=== PATIENT | female | born 1985 | race Caucasian/White ===

== ENCOUNTER 2017-03-10 18:37 | Inpatient (IN) | payer BC, SELFPAY ==
[~2017-03-10] VITALS: Ht 162.6 cm; Wt 95.4 kg
[~2017-03-10 18:37] MED LIST: Bactrim Ds Tab1 EACH PO; CRUTCH3 USE; HYDACE5 PO; IBUP400 PO; IBUP800 PO; PROM25 PO; Verotin-Gr Cap1 EACH PO
[2017-03-10 20:16] LABS: BASOPHILS ABSOLUTE AUTO 0.05 K/mm3 (0.00-0.23); BASOPHILS PERCENT AUTO 0 % (0-2); EOSINOPHILS ABSOLUTE AUTO 0.34 K/mm3 (0.00-0.68); EOSINOPHILS PERCENT AUTO 2 % (0-6); Hematocrit 33.7 % (33.0-51.0); Hemoglobin 11.9 g/dL (11.5-16.0); IMMATURE GRAN ABSOLUTE AUTO 0.07 K/mm3 (0.00-0.10); IMMATURE GRAN PERCENT AUTO 1 % (0-1); LYMPHOCYTES ABSOLUTE AUTO 1.89 K/mm3 (0.84-5.20); LYMPHOCYTES PERCENT AUTO 13 % (21-46); MONOCYTES ABSOLUTE AUTO 1.07 K/mm3 (0.16-1.47); MONOCYTES PERCENT AUTO 7 % (4-13); Mean Corpuscular HGB 31.2 pg (26.0-34.0); Mean Corpuscular HGB Conc 35.3 g/dL (31.5-36.5); Mean Corpuscular Volume 89 fL (80-100); Mean Platelet Volume 8.3 fL (9.1-12.4); NEUTROPHILS ABSOLUTE AUTO 11.52 K/mm3 (1.96-9.15); NEUTROPHILS PERCENT AUTO 77 % (41-73); Platelet Count 325 K/mm3 (150-400); RDW Coefficient Variation 12.4 % (11.7-14.2); RDW Standard Deviation 39.9 fL (35.1-46.3); Red Blood Cell Count 3.81 M/mm3 (3.80-5.20); White Blood Cell Count 14.94 K/mm3 (4.00-11.30)
[2017-03-10] MEDS ORDERED: ALBU4 PO (20:40)
[2017-03-11 06:45] LABS: BASOPHILS ABSOLUTE AUTO 0.03 K/mm3 (0.00-0.23); BASOPHILS PERCENT AUTO 0 % (0-2); EOSINOPHILS ABSOLUTE AUTO 0.03 K/mm3 (0.00-0.68); EOSINOPHILS PERCENT AUTO 0 % (0-6); Hematocrit 28.1 % (33.0-51.0); Hemoglobin 9.9 g/dL (11.5-16.0); IMMATURE GRAN ABSOLUTE AUTO 0.09 K/mm3 (0.00-0.10); IMMATURE GRAN PERCENT AUTO 1 % (0-1); LYMPHOCYTES ABSOLUTE AUTO 1.28 K/mm3 (0.84-5.20); LYMPHOCYTES PERCENT AUTO 9 % (21-46); MONOCYTES ABSOLUTE AUTO 0.85 K/mm3 (0.16-1.47); MONOCYTES PERCENT AUTO 6 % (4-13); Mean Corpuscular HGB 31.6 pg (26.0-34.0); Mean Corpuscular HGB Conc 35.2 g/dL (31.5-36.5); Mean Corpuscular Volume 90 fL (80-100); Mean Platelet Volume 8.1 fL (9.1-12.4); NEUTROPHILS ABSOLUTE AUTO 12.68 K/mm3 (1.96-9.15); NEUTROPHILS PERCENT AUTO 85 % (41-73); Platelet Count 291 K/mm3 (150-400); RDW Coefficient Variation 12.3 % (11.7-14.2); RDW Standard Deviation 39.8 fL (35.1-46.3); Red Blood Cell Count 3.13 M/mm3 (3.80-5.20); White Blood Cell Count 14.96 K/mm3 (4.00-11.30)
== END 2017-03-11 18:55 | disposition home or self-care (01) | DRG 767 ==
LOC: BC 18:37
PROVIDERS: Obstetrics & Gynecology
PROC: 10E0XZZ Delivery of Products of Conception, External Approach (ICD-10-PCS; principal; 2017-03-11)
PROC: 10D17Z9 Manual Extraction of Products of Conception, Retained, Via Natural or Artificial Opening (ICD-10-PCS; 2017-03-11)
PROC: 3E0P7VZ Introduction of Hormone into Female Reproductive, Via Natural or Artificial Opening (ICD-10-PCS; 2017-03-11)
DX: O42.912 Preterm premature rupture of membranes, unspecified as to length of time between rupture and onset of labor, second trimester (principal); O41.1220 Chorioamnionitis, second trimester, not applicable or unspecified; O72.0 Third-stage hemorrhage; O36.5920 Maternal care for other known or suspected poor fetal growth, second trimester, not applicable or unspecified; Z37.1 Single stillbirth; Z3A.18 18 weeks gestation of pregnancy
CPT/HCPCS: 36415; 76815; 80053; 84702; 85025; 86850; 86900; 86901; 99283; J0690; J1885; J2210; J2405; J2590; J3010; J7120

== ENCOUNTER 2017-05-28 20:00 | Emergency (ER) | payer BC, SELFPAY ==
[~2017-05-28] VITALS: Ht 165.1 cm; Wt 90.7 kg
[~2017-05-28 20:00] MED LIST changes: +ALBU4 PO
[2017-05-28 20:19] LABS: BASOPHILS ABSOLUTE AUTO 0.06 K/mm3 (0.00-0.23); BASOPHILS PERCENT AUTO 1 % (0-2); EOSINOPHILS ABSOLUTE AUTO 0.49 K/mm3 (0.00-0.68); EOSINOPHILS PERCENT AUTO 5 % (0-6); Hematocrit 39.6 % (33.0-51.0); Hemoglobin 13.2 g/dL (11.5-16.0); IMMATURE GRAN ABSOLUTE AUTO 0.02 K/mm3 (0.00-0.10); IMMATURE GRAN PERCENT AUTO 0 % (0-1); LYMPHOCYTES ABSOLUTE AUTO 3.22 K/mm3 (0.84-5.20); LYMPHOCYTES PERCENT AUTO 31 % (21-46); MONOCYTES ABSOLUTE AUTO 0.85 K/mm3 (0.16-1.47); MONOCYTES PERCENT AUTO 8 % (4-13); Mean Corpuscular HGB Conc 33.3 g/dL (31.5-36.5); Mean Corpuscular Volume 87 fL (80-100); Mean Platelet Volume 8.6 fL (9.1-12.4); NEUTROPHILS ABSOLUTE AUTO 5.62 K/mm3 (1.96-9.15); NEUTROPHILS PERCENT AUTO 55 % (41-73); Platelet Count 355 K/mm3 (150-400); RDW Coefficient Variation 12.2 % (11.7-14.2); Red Blood Cell Count 4.55 M/mm3 (3.80-5.20); White Blood Cell Count 10.26 K/mm3 (4.00-11.30)
[2017-05-28 20:40] LABS: Alanine Aminotransfer (ALT/SGP 21 U/L (12-78); Albumin, Blood 3.8 g/dL (3.4-5.0); Albumin/Globulin Ratio 1.2 (0.8-1.8); Alk Phos 65 U/L (50-136); Anion Gap 3 mmol/L (6-16); Aspartate Aminotrans (AST/SGOT 13 U/L (12-37); Bilirubin, Total 0.1 mg/dL (0.1-1.0); Blood Urea Nitrogen 12 mg/dL (8-24); Bun/Creatinine Ratio 14.4 (12.0-20.0); CO2, Blood 26 mmol/L (21-32); Calcium, Blood 9.1 mg/dL (8.5-10.1); Chloride, Blood 109 mmol/L (98-108); Creatinine, Blood 0.83 mg/dL (0.40-1.00); Globulin, Blood 3.3 g/dL (2.2-4.0); Glomerular Filtration Rate >60 (60-); Glucose, Blood 94 mg/dL (70-99); Potassium, Blood 3.6 mmol/L (3.5-5.5); Sodium, Blood 138 mmol/L (136-145); Total Protein, Blood 7.1 g/dL (6.4-8.2)
== END 2017-05-29 00:25 | disposition home or self-care (01) ==
LOC: ER 20:00
PROVIDERS: Emergency Medicine
DX: R07.9 Chest pain, unspecified (principal); R06.02 Shortness of breath; Z79.899 Other long term (current) drug therapy
CPT/HCPCS: 36415; 80053; 81000; 81025; 84443; 84703; 85025; 93005; 93010

== ENCOUNTER 2017-08-06 10:52 | Day surgery (SDC) | payer BC, SELFPAY ==
[~2017-08-06] VITALS: Ht 162.6 cm; Wt 98.0 kg
== END 2017-08-06 14:07 | disposition home or self-care (01) ==
LOC: ORSCSDS 10:52
PROVIDERS: Obstetrics & Gynecology
PROC: 0UDB8ZX Extraction of Endometrium, Via Natural or Artificial Opening Endoscopic, Diagnostic (ICD-10-PCS; principal; 2017-08-06 12:15)
DX: N92.5 Other specified irregular menstruation (principal); N85.00 Endometrial hyperplasia, unspecified; N84.0 Polyp of corpus uteri; R93.8 Abnormal findings on diagnostic imaging of other specified body structures; N71.1 Chronic inflammatory disease of uterus; E66.01 Morbid (severe) obesity due to excess calories; Z68.36 Body mass index [BMI] 36.0-36.9, adult
CPT/HCPCS: 88305; J0690; J1100; J1885; J2250; J2405; J3010; J7120

== ENCOUNTER 2018-07-24 03:35 | Inpatient (IN) | payer BC ==
[~2018-07-24] VITALS: Ht 165.1 cm; Wt 114.0 kg
[2018-07-24 05:13] LABS: BASOPHILS ABSOLUTE AUTO 0.05 K/mm3 (0.00-0.23); BASOPHILS PERCENT AUTO 0 % (0-2); EOSINOPHILS ABSOLUTE AUTO 0.38 K/mm3 (0.00-0.68); EOSINOPHILS PERCENT AUTO 3 % (0-6); Hematocrit 35.9 % (33.0-51.0); IMMATURE GRAN ABSOLUTE AUTO 0.06 K/mm3 (0.00-0.10); IMMATURE GRAN PERCENT AUTO 1 % (0-1); LYMPHOCYTES ABSOLUTE AUTO 2.01 K/mm3 (0.84-5.20); LYMPHOCYTES PERCENT AUTO 15 % (21-46); MONOCYTES ABSOLUTE AUTO 1.02 K/mm3 (0.16-1.47); MONOCYTES PERCENT AUTO 8 % (4-13); Mean Corpuscular HGB 30.7 pg (26.0-34.0); Mean Corpuscular HGB Conc 33.4 g/dL (31.5-36.5); Mean Corpuscular Volume 92 fL (80-100); Mean Platelet Volume 8.8 fL (9.1-12.4); NEUTROPHILS ABSOLUTE AUTO 9.72 K/mm3 (1.96-9.15); NEUTROPHILS PERCENT AUTO 73 % (41-73); Platelet Count 326 K/mm3 (150-400); RDW Coefficient Variation 12.9 % (11.7-14.2); RDW Standard Deviation 42.8 fL (35.1-46.3); Red Blood Cell Count 3.91 M/mm3 (3.80-5.20); White Blood Cell Count 13.24 K/mm3 (4.00-11.30)
--- NOTE | 2018-07-24 20:19 | NUR ---
EPIDURAL STARTED @ 814 TODAY SCANED INT emar NOW
--- NOTE | 2018-07-24 20:26 | NUR ---
2020 epidural cont. rate adjusted to [address] Sauceda instructions
[2018-07-25 05:55] LABS: BASOPHILS ABSOLUTE AUTO 0.06 K/mm3 (0.00-0.23); BASOPHILS PERCENT AUTO 0 % (0-2); EOSINOPHILS ABSOLUTE AUTO 0.04 K/mm3 (0.00-0.68); EOSINOPHILS PERCENT AUTO 0 % (0-6); Hematocrit 31.5 % (33.0-51.0); Hemoglobin 10.7 g/dL (11.5-16.0); IMMATURE GRAN ABSOLUTE AUTO 0.19 K/mm3 (0.00-0.10); IMMATURE GRAN PERCENT AUTO 1 % (0-1); LYMPHOCYTES ABSOLUTE AUTO 2.11 K/mm3 (0.84-5.20); LYMPHOCYTES PERCENT AUTO 8 % (21-46); MONOCYTES ABSOLUTE AUTO 1.96 K/mm3 (0.16-1.47); MONOCYTES PERCENT AUTO 7 % (4-13); Mean Corpuscular HGB 31.7 pg (26.0-34.0); Mean Corpuscular Volume 93 fL (80-100); Mean Platelet Volume 8.5 fL (9.1-12.4); NEUTROPHILS ABSOLUTE AUTO 22.88 K/mm3 (1.96-9.15); NEUTROPHILS PERCENT AUTO 84 % (41-73); Platelet Count 288 K/mm3 (150-400); RDW Coefficient Variation 12.9 % (11.7-14.2); RDW Standard Deviation 44.1 fL (35.1-46.3); Red Blood Cell Count 3.38 M/mm3 (3.80-5.20); White Blood Cell Count 27.24 K/mm3 (4.00-11.30)
[2018-07-26 05:33] LABS: BASOPHILS ABSOLUTE AUTO 0.05 K/mm3 (0.00-0.23); BASOPHILS PERCENT AUTO 0 % (0-2); EOSINOPHILS ABSOLUTE AUTO 0.34 K/mm3 (0.00-0.68); EOSINOPHILS PERCENT AUTO 3 % (0-6); Hematocrit 34.2 % (33.0-51.0); Hemoglobin 11.2 g/dL (11.5-16.0); IMMATURE GRAN ABSOLUTE AUTO 0.04 K/mm3 (0.00-0.10); IMMATURE GRAN PERCENT AUTO 0 % (0-1); LYMPHOCYTES PERCENT AUTO 19 % (21-46); MONOCYTES ABSOLUTE AUTO 0.97 K/mm3 (0.16-1.47); MONOCYTES PERCENT AUTO 8 % (4-13); Mean Corpuscular HGB Conc 32.7 g/dL (31.5-36.5); Mean Corpuscular Volume 95 fL (80-100); Mean Platelet Volume 8.8 fL (9.1-12.4); NEUTROPHILS ABSOLUTE AUTO 8.28 K/mm3 (1.96-9.15); NEUTROPHILS PERCENT AUTO 70 % (41-73); Platelet Count 302 K/mm3 (150-400); RDW Standard Deviation 44.8 fL (35.1-46.3); Red Blood Cell Count 3.61 M/mm3 (3.80-5.20); White Blood Cell Count 11.88 K/mm3 (4.00-11.30)
--- NOTE | 2018-07-26 10:01 | NUR ---
ASSIST BABY SLEEPING. ORDERED SUPP EACH FEEDING FOR ELEVATED JAUNDICE. DISCUSSED CORRECT LATCH DEMONSTRATED FOOTBALL HHOLD AND BREAST ROLL. DEMONSTRATED NEW BEGINNINGS AND BOOK.
[2018-07-26] MEDS ORDERED: IBUP800 (13:08)
--- NOTE | 2018-07-26 14:36 | NUR ---
PATIENT SLEEPING DENIES NEEDING PAIN MEDICATION
== END 2018-07-26 17:00 | disposition home or self-care (01) | DRG 807 ==
LOC: OBS 03:35 → BC 03:41 → OBS 03:55 → BC 03:57
PROVIDERS: Advanced Practice Midwife; ADMIT Nurse Practitioner Obstetrics & Gynecology
PROC: 10E0XZZ Delivery of Products of Conception, External Approach (ICD-10-PCS; principal; 2018-07-24)
PROC: 10H07YZ Insertion of Other Device into Products of Conception, Via Natural or Artificial Opening (ICD-10-PCS; 2018-07-24)
PROC: 3E0R3BZ Introduction of Anesthetic Agent into Spinal Canal, Percutaneous Approach (ICD-10-PCS; 2018-07-24)
DX: O99.824 Streptococcus B carrier state complicating childbirth (principal); Z37.0 Single live birth; Z3A.40 40 weeks gestation of pregnancy
CPT/HCPCS: 36415; 51702; 85025; 90471; J0290; J0690; J1885; J2001; J2210; J2405; J2590; J3010; J7120

== ENCOUNTER → 2019-07-04 | Outpatient (CLI) | payer BC ==
[~2019-07-04] MED LIST changes: +IBUP800
== END | disposition home or self-care (01) ==
LOC: LAB SHORT 10:15 → LAB 10:15
DX: Z09 Encounter for follow-up examination after completed treatment for conditions other than malignant neoplasm (principal); Z86.14 Personal history of Methicillin resistant Staphylococcus aureus infection
CPT/HCPCS: 87081

== ENCOUNTER → 2019-08-08 | Outpatient (CLI) | payer BC | END | disposition home or self-care (01) | LOC: LAB 09:33 → LAB SHORT 09:33 | DX: Z09 Encounter for follow-up examination after completed treatment for conditions other than malignant neoplasm (principal); Z86.14 Personal history of Methicillin resistant Staphylococcus aureus infection | CPT/HCPCS: 87081 ==

== ENCOUNTER 2021-08-10 21:03 | Inpatient (IN) | payer BC ==
[~2021-08-10] VITALS: Ht 162.6 cm; Wt 272.0 kg
[~2021-08-10 21:03] MED LIST changes: +Percocet 5-3251 EACH PO
[2021-08-10] MEDS ORDERED: ALBU90OI INH (21:27)
[2021-08-10 22:02] LABS: BASOPHILS ABSOLUTE AUTO 0.03 K/mm3 (0.00-0.23); BASOPHILS PERCENT AUTO 0 % (0-2); EOSINOPHILS ABSOLUTE AUTO 0.39 K/mm3 (0.00-0.68); EOSINOPHILS PERCENT AUTO 3 % (0-6); Hematocrit 36.1 % (33.0-51.0); Hemoglobin 12.2 g/dL (11.5-16.0); IMMATURE GRAN ABSOLUTE AUTO 0.05 K/mm3 (0.00-0.10); IMMATURE GRAN PERCENT AUTO 0 % (0-1); LYMPHOCYTES ABSOLUTE AUTO 2.34 K/mm3 (0.84-5.20); LYMPHOCYTES PERCENT AUTO 20 % (21-46); MONOCYTES ABSOLUTE AUTO 1.25 K/mm3 (0.16-1.47); MONOCYTES PERCENT AUTO 11 % (4-13); Mean Corpuscular HGB 29.9 pg (26.0-34.0); Mean Corpuscular HGB Conc 33.8 g/dL (31.5-36.5); Mean Corpuscular Volume 89 fL (80-100); Mean Platelet Volume 9.1 fL (9.1-12.4); NEUTROPHILS ABSOLUTE AUTO 7.58 K/mm3 (1.96-9.15); NEUTROPHILS PERCENT AUTO 65 % (41-73); Platelet Count 322 K/mm3 (150-400); RDW Coefficient Variation 13.2 % (11.7-14.2); RDW Standard Deviation 43.1 fL (35.1-46.3); Red Blood Cell Count 4.08 M/mm3 (3.80-5.20); White Blood Cell Count 11.64 K/mm3 (4.00-11.30)
--- NOTE | 2021-08-11 07:30 | NUR ---
IV PLACED BY NOC SHIFT IN RIGHT HAND
--- NOTE | 2021-08-11 15:42 | NUR ---
UP SHOWERED, LINEN CHANGE NOT ABLE TO VOID
[2021-08-12 06:10] LABS: Hematocrit 32.3 % (33.0-51.0); Hemoglobin 10.9 g/dL (11.5-16.0); Mean Corpuscular HGB Conc 33.7 g/dL (31.5-36.5); Mean Corpuscular Volume 89 fL (80-100); Mean Platelet Volume 9.2 fL (9.1-12.4); Platelet Count 262 K/mm3 (150-400); RDW Coefficient Variation 13.4 % (11.7-14.2); RDW Standard Deviation 43.8 fL (35.1-46.3); Red Blood Cell Count 3.63 M/mm3 (3.80-5.20); White Blood Cell Count 11.45 K/mm3 (4.00-11.30)
== END 2021-08-12 14:00 | disposition home or self-care (01) | DRG 807 ==
LOC: OBS 21:03 → BC 21:06 → OBS 21:11 → BC 21:12
PROVIDERS: ADMIT Nurse Practitioner Obstetrics & Gynecology
PROC: 10E0XZZ Delivery of Products of Conception, External Approach (ICD-10-PCS; principal; 2021-08-11)
PROC: 3E0P7VZ Introduction of Hormone into Female Reproductive, Via Natural or Artificial Opening (ICD-10-PCS; 2021-08-11)
PROC: 10H07YZ Insertion of Other Device into Products of Conception, Via Natural or Artificial Opening (ICD-10-PCS; 2021-08-11)
PROC: 10H073Z Insertion of Monitoring Electrode into Products of Conception, Via Natural or Artificial Opening (ICD-10-PCS; 2021-08-11)
PROC: 3E0R3BZ Introduction of Anesthetic Agent into Spinal Canal, Percutaneous Approach (ICD-10-PCS; 2021-08-11)
PROC: 00HU33Z Insertion of Infusion Device into Spinal Canal, Percutaneous Approach (ICD-10-PCS; 2021-08-11)
DX: O99.824 Streptococcus B carrier state complicating childbirth (principal); Z37.0 Single live birth; Z3A.39 39 weeks gestation of pregnancy; O99.214 Obesity complicating childbirth; Z79.899 Other long term (current) drug therapy
CPT/HCPCS: 36415; 51702; 85025; 85027; 86850; 86900; 86901; A9270; J0290; J1885; J2001; J2210; J2590; J3010; J7120

== ENCOUNTER 2023-03-26 20:55 | Emergency (ER) | payer OTHER ==
[~2023-03-26] VITALS: Ht 162.6 cm; Wt 117.9 kg
[~2023-03-26 20:55] MED LIST changes: +ALBU90OI INH
[2023-03-27] MEDS ORDERED: Glucagon 1 MG/KIT VIAL IV ONE (00:15)
[2023-03-27 00:39] LABS: BASOPHILS ABSOLUTE AUTO 0.06 K/mm3 (0.00-0.23); BASOPHILS PERCENT AUTO 0 % (0-2); EOSINOPHILS ABSOLUTE AUTO 0.39 K/mm3 (0.00-0.68); EOSINOPHILS PERCENT AUTO 3 % (0-6); Hematocrit 41.2 % (33.0-51.0); Hemoglobin 14.1 g/dL (11.5-16.0); IMMATURE GRAN ABSOLUTE AUTO 0.04 K/mm3 (0.00-0.10); IMMATURE GRAN PERCENT AUTO 0 % (0-1); LYMPHOCYTES ABSOLUTE AUTO 2.01 K/mm3 (0.84-5.20); LYMPHOCYTES PERCENT AUTO 13 % (21-46); MONOCYTES ABSOLUTE AUTO 0.95 K/mm3 (0.16-1.47); MONOCYTES PERCENT AUTO 6 % (4-13); Mean Corpuscular HGB 29.4 pg (26.0-34.0); Mean Corpuscular HGB Conc 34.2 g/dL (31.5-36.5); Mean Corpuscular Volume 86 fL (80-100); Mean Platelet Volume 8.2 fL (9.1-12.4); NEUTROPHILS ABSOLUTE AUTO 12.44 K/mm3 (1.96-9.15); NEUTROPHILS PERCENT AUTO 78 % (41-73); Platelet Count 359 K/mm3 (150-400); RDW Coefficient Variation 12.1 % (11.7-14.2); RDW Standard Deviation 38.5 fL (35.1-46.3); Red Blood Cell Count 4.79 M/mm3 (3.80-5.20); White Blood Cell Count 15.89 K/mm3 (4.00-11.30)
[2023-03-27 00:56] LABS: Albumin, Blood 3.8 g/dL (3.4-5.0); Albumin/Globulin Ratio 1.1 (0.8-1.8); Bilirubin, Total 0.4 mg/dL (0.1-1.0); Bun/Creatinine Ratio 12.7 (12.0-20.0); Calcium, Blood 9.3 mg/dL (8.5-10.1); Creatinine, Blood 0.79 mg/dL (0.40-1.00); Globulin, Blood 3.5 g/dL (2.2-4.0); Potassium, Blood 3.9 mmol/L (3.5-5.5); Total Protein, Blood 7.3 g/dL (6.4-8.2)
[2023-03-27] MEDS ORDERED: Lactated Ringer's 1,000 ML IV SCH ×2 (01:10→03:25)
[2023-03-27 03:51] VITALS: BP 138/85; BP 139/80
--- NOTE | 2023-03-27 04:02 | NUR ---
Ambulatory in Day Surgery WITH STEADY GAIT, ABLE TO USE RESTROOM INDEPENDENTLY. History, Chart, Medications and Allergies reviewed before start of procedure. Lungs clear T/O to Auscultation. Patient confirms NPO status and agrees with scheduled surgery. Pre-Op teaching done. Pt verbalizes understanding. Patient States Post-Procedure ride home has been arranged.
[2023-03-27] MEDS ORDERED: propofoL 60 ML IV ONE (04:03)
[2023-03-27] MEDS ORDERED: Lidocaine HCl 4% 5 ML SDA ONE (04:06)
--- NOTE | 2023-03-27 04:22 | NUR ---
03/27/23 0422 Evangelista Vick HISTORY, CHART, MEDICATIONS AND ALLERGIES REVIEWED BEFORE START OF PROCEDURE. PATIENT CONFIRMS NPO STATUS AND AGREES WITH SCHEDULED PROCEDURE. 3-LEAD EKG REVIEWED WITH PHYSICIAN PRIOR TO START OF PROCEDURE. MONITOR INTACT WITH CONTINUOUS PULSE OXIMETRY,CAPNOGRAPHY, 3-LEAD EKG, INTERMITTENT BP. SUPPLEMENTAL O2 TO BE TITRATED THROUGHOUT PROCEDURE TO MAINTAIN O2 SATURATION ABOVE 90%. SEE DR HOWE'S RECORDS FOR SEDATION.
[2023-03-27 04:48] VITALS: BP 132/72; BP 140/73
--- NOTE | 2023-03-27 05:05 | NUR ---
20G IV PLACED IN THE RAC DURING ER VISIT REMOVED. PT TOW. REMOVED INTACT. REMOVED DUE TO PATIENT BEING DISCHARGED.
--- NOTE | 2023-03-27 05:23 | NUR ---
Patient up to Ambulate independently. Gait steady. Discharge instructions reviewed with patient. Patient verbalizes understanding. Copy given to patient to take home. PT TOLERATING WATER WELL. Discharged via wheelchair to private car for ride home.
== END 2023-03-27 03:38 | disposition other institution (70) ==
LOC: ER 20:55
PROVIDERS: Emergency Medicine
DX: T18.128A Food in esophagus causing other injury, initial encounter (principal)
CPT/HCPCS: 80053; 84703; 85025; 88305; 96374; 99284; J1610; J2001; J2704; J7120

== ENCOUNTER 2023-07-23 09:16 | Day surgery (SDC) | payer OTHER ==
[~2023-07-23] VITALS: Ht 162.6 cm; Wt 121.7 kg
[2023-07-23] MEDS ORDERED: PANT20 (09:52)
[2023-07-23] MEDS ORDERED: VITAMIN D350 MC3 (09:53)
[2023-07-23] MEDS ORDERED: Lactated Ringer's 1,000 ML IV ONE (10:35)
[2023-07-23] MEDS ORDERED: Lidocaine HCl 4% 5 ML SDA ONE (10:40)
[2023-07-23] MEDS ORDERED: Ipratropium/Albuterol SulF 2.5-0.5MG/3 ML Amp ONE (10:52)
[2023-07-23] MEDS ORDERED: propofoL 50 ML IV ONE ×2 (11:03→11:25)
--- NOTE | 2023-07-23 12:47 | NUR ---
07/23/23 1247 ServandoErnestine S WHEN ASKED PT. IF SHE HAD ANY PAIN OR SORE THROAT PT. STATES "HURTS A LITTLE BIT." PT. POINTING TO MID CHEST. PT. INSTRUCTED COULD BE SORE FOR A FEW DAYS SINCE DR. ESCOBAR DID SOME DILITATION. PT. VERBALIZES FEELING IT WHEN SHE WAS SWALLOWING HER ICE WATER. INSTRUCTED IF DIDN'T GET BETTER TO MAKE SURE & CALL
[2023-07-23 12:48] VITALS: BP 119/78
== END 2023-07-23 12:11 | disposition home or self-care (01) ==
LOC: ORSCSDS 09:16
PROVIDERS: Internal Medicine Gastroenterology
PROC: 0DB58ZX Excision of Esophagus, Via Natural or Artificial Opening Endoscopic, Diagnostic (ICD-10-PCS; 2023-07-23)
PROC: 0D757ZZ Dilation of Esophagus, Via Natural or Artificial Opening (ICD-10-PCS; principal; 2023-07-23 10:30)
DX: K20.0 Eosinophilic esophagitis (principal); L30.8 Other specified dermatitis; K21.9 Gastro-esophageal reflux disease without esophagitis; J45.909 Unspecified asthma, uncomplicated; E66.01 Morbid (severe) obesity due to excess calories; Z68.42 Body mass index [BMI] 45.0-49.9, adult; Z79.899 Other long term (current) drug therapy
CPT/HCPCS: 84703; 88305; 88312; J2001; J2704; J7120

== ENCOUNTER 2024-01-21 07:12 | Day surgery (SDC) | payer OTHER ==
[~2024-01-21] VITALS: Ht 162.6 cm; Wt 115.2 kg
[~2024-01-21 07:12] MED LIST changes: +Lactated Ringer's 1,000 ML IV ONE; +PANT20; +VITAMIN D350 MC3
[2024-01-21] MEDS ORDERED: Lidocaine HCl 4% 5 ML SDA ONE (08:34)
[2024-01-21] MEDS ORDERED: Lactated Ringer's 1,000 ML IV ONE (08:57)
[2024-01-21] MEDS ORDERED: propofoL 50 ML IV ONE (09:01)
[2024-01-21 09:33] VITALS: BP 105/76
== END 2024-01-21 09:48 | disposition home or self-care (01) ==
LOC: ORSCSDS 07:12
PROVIDERS: Internal Medicine Gastroenterology
PROC: 0D757ZZ Dilation of Esophagus, Via Natural or Artificial Opening (ICD-10-PCS; principal; 2024-01-21 08:45)
PROC: 0DB58ZX Excision of Esophagus, Via Natural or Artificial Opening Endoscopic, Diagnostic (ICD-10-PCS; principal; 2024-01-21 08:45)
DX: K20.90 Esophagitis, unspecified without bleeding (principal); K21.9 Gastro-esophageal reflux disease without esophagitis; J45.909 Unspecified asthma, uncomplicated; E66.01 Morbid (severe) obesity due to excess calories; Z68.41 Body mass index [BMI] 40.0-44.9, adult; Z79.899 Other long term (current) drug therapy
CPT/HCPCS: 88305; 88312; J2003; J2704; J7120

== ENCOUNTER → 2024-03-30 | Outpatient (CLI) | payer OTHER ==
[~2024-03-30] MED LIST changes: -Lactated Ringer's 1,000 ML IV ONE
== END ==
LOC: LAB SHORT 14:07 → LAB 14:07
DX: N39.0 Urinary tract infection, site not specified (principal)
CPT/HCPCS: 87077; 87086; 87186

== ENCOUNTER 2024-06-23 11:09 | Day surgery (SDC) | payer OTHER ==
[~2024-06-23] VITALS: Ht 165.1 cm; Wt 119.0 kg
[~2024-06-23 11:09] MED LIST changes: +FLUTICASONE PRO12 G1 INH; +Lactated Ringer's 1,000 ML IV SCH; -PANT20; +PANT40 PO; +propofoL 50 ML IV ONE
--- NOTE | 2024-06-23 11:36 | NUR ---
History, Chart, Medications and Allergies reviewed before start of procedure. Pre-Op teaching done. Pt verbalizes understanding. Patient confirms NPO status and agrees with scheduled surgery. Patient States Post-Procedure ride home has been arranged.
[2024-06-23 11:39] VITALS: BP 122/74
--- NOTE | 2024-06-23 11:59 | NUR ---
06/23/24 1159 Dav Koroma MONITOR INTACT WITH CONTINUOUS PULSE OXIMETRY, CONTINUOUS END TITAL CO2, 3-LEAD EKG AND INTERMITTENT BLOOD PRESSURE.Bite Block Placed
[2024-06-23 12:17] VITALS: BP 129/83
--- NOTE | 2024-06-23 12:36 | NUR ---
Discharge instructions reviewed with patient. Patient verbalizes understanding. Copy given to patient to take home. Patient States Post-Procedure ride home has been arranged. Discharged via wheelchair to private car for ride home.
[2024-06-23] MEDS ORDERED: Glycopyrrolate 0.2 MG/ML 5ML VIAL IV ONE (21:54)
== END 2024-06-23 12:32 | disposition home or self-care (01) ==
LOC: ORSCMMR 11:09 → ORD 12:45
PROVIDERS: Internal Medicine Gastroenterology
PROC: 0DB58ZX Excision of Esophagus, Via Natural or Artificial Opening Endoscopic, Diagnostic (ICD-10-PCS; principal; 2024-06-23 12:45)
DX: K20.0 Eosinophilic esophagitis (principal); J45.909 Unspecified asthma, uncomplicated; K21.9 Gastro-esophageal reflux disease without esophagitis; Z79.899 Other long term (current) drug therapy; E66.01 Morbid (severe) obesity due to excess calories; Z68.41 Body mass index [BMI] 40.0-44.9, adult
CPT/HCPCS: 88305; J2704; J7120

== ENCOUNTER 2024-12-20 07:51 | Day surgery (SDC) | payer OTHER ==
[~2024-12-20] VITALS: Ht 165.1 cm; Wt 120.7 kg
[~2024-12-20 07:51] MED LIST changes: -Lactated Ringer's 1,000 ML IV SCH; -propofoL 50 ML IV ONE
[2024-12-20] MEDS ORDERED: DUPIXENT P300 MG/2 M SQ (08:14)
[2024-12-20] MEDS ORDERED: Hair, Skin & N1 EACH PO (08:15)
[2024-12-20] MEDS ORDERED: Benzocaine Oral Spray 0.5ML UD ONE (09:39)
[2024-12-20 10:33] VITALS: BP 122/67
--- NOTE | 2024-12-20 10:33 | NUR ---
12/20/24 Umu Rodriguez PT STATES THROAT SORENESS IS "OKAY RIGHT NOW", IS ABLE TO TOLERATE PO FLUIDS WITHOUT ISSUE.
== END 2024-12-20 10:41 | disposition home or self-care (01) ==
LOC: ORSCSDS 07:51
PROVIDERS: Internal Medicine Gastroenterology
PROC: 0D758ZZ Dilation of Esophagus, Via Natural or Artificial Opening Endoscopic (ICD-10-PCS; principal; 2024-12-20 09:15)
PROC: 0DB98ZX Excision of Duodenum, Via Natural or Artificial Opening Endoscopic, Diagnostic (ICD-10-PCS; principal; 2024-12-20 09:15)
PROC: 0DB68ZX Excision of Stomach, Via Natural or Artificial Opening Endoscopic, Diagnostic (ICD-10-PCS; principal; 2024-12-20 09:15)
DX: K20.0 Eosinophilic esophagitis (principal); K21.9 Gastro-esophageal reflux disease without esophagitis; F41.9 Anxiety disorder, unspecified; J45.909 Unspecified asthma, uncomplicated; Z79.899 Other long term (current) drug therapy; E66.01 Morbid (severe) obesity due to excess calories; Z68.41 Body mass index [BMI] 40.0-44.9, adult
CPT/HCPCS: 88305; A9270; J2704; J7120